=== PATIENT | female | born 2000 | race Caucasian/White ===

== ENCOUNTER → 2018-03-21 | Outpatient (REF) | payer OTHER | LOC: M SFHCLERA 15:23 | DX: J02.9 Acute pharyngitis, unspecified (principal) ==

== ENCOUNTER 2018-03-26 08:21 | Inpatient (IN) | payer OTHER ==
[2018-03-26] MEDS: LACTATED RINGER'S 1000 ML IV (09:26)
[2018-03-26 09:42] LABS: HEMATOCRIT 37.9 % (36.0-47.0); HEMOGLOBIN 12.2 g/dl (12.0-15.5); MEAN CORPUSCULAR HEMOGLOBIN 27.7 pg (27.0-33.0); MEAN CORPUSCULAR HGB CONC 32.2 g/dl (32.0-36.5); MEAN CORPUSCULAR VOLUME 85.9 fl (80.0-96.0); PLATELET COUNT, AUTOMATED 253 10^3/uL (150-450); RED BLOOD COUNT 4.41 10^6/uL (4.00-5.40); RED CELL DISTRIBUTION WIDTH 14.4 % (11.5-14.5); WHITE BLOOD COUNT 17.7 10^3/uL (4.0-10.0)
[2018-03-26] MEDS ORDERED: FENTANYL 2MCG/ML ROPIVACAINE 0.2% IN 0.9% NACL 200ML IVBAG As Ordered (10:19)
[2018-03-26] MEDS: LR 1,000 ML IV ×3 (10:48→15:03)
[2018-03-26] MEDS: FENTANYL/ROPIVACAINE/NACL BAG 200 ML EPIDURAL (11:44)
[2018-03-26] MEDS ORDERED: diphenhydrAMINE INJ 50MG/ML VIAL (J1200) IV (11:45)
[2018-03-26] MEDS ORDERED: ePHEDrine SULFATE 25 MG/5 ML(5MG/ML) SYRINGE IV (11:45)
[2018-03-26] MEDS ORDERED: NALOXONE INJ 0.4 MG/1 ML VIAL (J2310) IV (11:45)
[2018-03-26] MEDS ORDERED: REFRIGERATOR IV KEYS XX (11:45)
[2018-03-26] MEDS ORDERED: ONDANSETRON 4MG/2ML VIAL (J2405) IV (11:45)
[2018-03-26] MEDS ORDERED: LACTATED RINGER'S 1000 ML IV (11:45)
[2018-03-26] MEDS ORDERED: EPIDURAL COMMENT XX (11:45)
[2018-03-26] MEDS ORDERED: EPIDURAL/PCA KEYS XX (11:45)
[2018-03-26] MEDS ORDERED: OXYTOCIN 30 UNITS IN 0.9% NaCl 500ML IV BAG (J2590) As Ordered ×2 (15:18→18:36)
[2018-03-26] MEDS ORDERED: UNASYN 3 GM VIAL As Ordered (17:31)
[2018-03-26] MEDS: AMPICILLIN SOD/SULBACTAM SOD 3 GM in D5W MINI-BAG PLUS 100 ML IV (18:11)
[2018-03-26] MEDS: miSOPROStol 200 MCG TAB (S0191) PR (18:58)
[2018-03-26] MEDS: OXYTOCIN DRIP 30 UNITS in APPROPRIATE DILUENT 1 EA IV ×2 (18:58→18:59)
[2018-03-26] MEDS ORDERED: METOCLOPRAMIDE INJ 10MG/2ML VIAL (J2765) IV (19:00)
[2018-03-26] MEDS ORDERED: MEASLES,MUMPS,RUBELLA VACCINE INJ (MMR-II) (90707) SC (19:00)
[2018-03-26] MEDS ORDERED: RHOGAM 300 MCG (1500 IU) INJ (J2790) IM (19:00)
[2018-03-26] MEDS ORDERED: DOCUSATE SODIUM 100 MG CAP PO (19:00)
[2018-03-26 19:04] LABS: CORD GAS ABE A -10.3; CORD GAS ABE V -9.1; CORD GAS HCO3 A 22.4 MEQ/L; CORD GAS O2 SAT A < 15.0 %; CORD GAS O2 SAT V 71.6 %; CORD GAS PCO2 A 85.6 mmHg; CORD GAS PCO2 V 37.7 mmHg; CORD GAS PH A 7.035 UNITS; CORD GAS PH V 7.271 UNITS; CORD GAS PO2 A 10.9 mmHg; CORD GAS PO2 V 35.2 mmHg; CORD GAS SBC V 16.7 MEQ/L; CORD GAS TCO2 V 18.1 MEQ/L
[2018-03-26] MEDS: IBUPROFEN 800 MG TAB PO (19:45)
[2018-03-26] MEDS: ACETAMINOPHEN TAB 650MG DOSE (2X325MG) PO (19:45)
[2018-03-26] MEDS: DOCUSATE SODIUM 100 MG CAP PO (21:00)
[2018-03-26] MEDS: DIBUCAINE 1% OINTMENT 30GM TOP (22:57)
[2018-03-27] MEDS: ACETAMINOPHEN TAB 650MG DOSE (2X325MG) PO ×2 (05:47→13:54)
[2018-03-27] MEDS: IBUPROFEN 800 MG TAB PO ×2 (05:47→20:27)
[2018-03-27] MEDS: PRENATAL VITAMINS CHEWABLE TABLET PO (09:59)
[2018-03-27] MEDS: DOCUSATE SODIUM 100 MG CAP PO ×2 (09:59→20:27)
[2018-03-28] MEDS: DOCUSATE SODIUM 100 MG CAP PO (08:41)
[2018-03-28] MEDS: PRENATAL VITAMINS CHEWABLE TABLET PO (08:41)
[2018-03-28] MEDS: IBUPROFEN 800 MG TAB PO (08:44)
== END 2018-03-28 17:38 | disposition home or self-care (01) | DRG 775 ==
LOC: M LDO 08:21 → M OBS 22:30 → M LDI 08:42
PROVIDERS: Obstetrics & Gynecology
PROC: 10E0XZZ Delivery of Products of Conception, External Approach (ICD-10-PCS; principal; 2018-03-26)
PROC: 0HQ9XZZ Repair Perineum Skin, External Approach (ICD-10-PCS; 2018-03-26)
DX: O48.0 Post-term pregnancy (principal); Z37.0 Single live birth; Z3A.40 40 weeks gestation of pregnancy; O69.82X0 Labor and delivery complicated by other cord entanglement, without compression, not applicable or unspecified; O70.0 First degree perineal laceration during delivery